=== PATIENT | male | born 1965 | race Caucasian/White ===

== ENCOUNTER 2023-11-01 06:26 | Day surgery (SDC) | payer OTHER, SELFPAY ==
[2023-10-29 08:58] LABS: Hemoglobin 16.8 g/dL (13.0-18.0); Mean Corp Hgb Conc. 34.3 g/dL (33.0-37.0); Mean Corpuscular Hgb 29.8 pg (27.0-31.0); Mean Platelet Volume 10.9 fL (7.4-10.4); Platelet Count 245 10^3/uL (130-400); Red Blood Cell Count 5.63 10^6/uL (4.70-6.10); Red Cell Dist. Width 13.6 % (11.5-14.5); White Blood Cell Count 6.9 10^3/uL (4.8-10.8)
[2023-10-29 09:27] LABS: Blood Urea Nitrogen 19 mg/dl (9-20); Calcium 9.6 mg/dl (8.4-10.2); Carbon Dioxide 28 mmol/L (22-30); Chloride 102 mmol/L (98-107); Glucose 83 mg/dl (70-99); Potassium 5.3 mmol/L (3.5-5.1); Sodium 134 mmol/L (135-145); eGFR > 60.00
[2023-10-29 12:24] VITALS: BMI 28.7
[2023-11-01] VITALS (11 sets, daily range): BP systolic 102–157; BP diastolic 53–80; BMI 28.7
[2023-11-01] MEDS: TYLENOL 1000 MG PO (08:53)
[2023-11-01] MEDS: LOVENOX 40 MG SC (08:53)
[2023-11-01] MEDS: NORMOSOL-R 1000 IV (08:54)
--- NOTE | 2023-11-01 09:09 | W.SUR.PREOP ---
Pre-Operative Surgical Note
-
I have examined this patient prior to the performance of the scheduled procedure.
The patient's condition is unchanged from the time of the current History and
Physical and the patient is able to undergo the scheduled procedure.
--- NOTE | 2023-11-01 11:30 | W.IMMPOSTOP ---
Addendum entered and electronically signed by Jose Dominguez MD 11/01/23 11:43:
#[id number]
Original Note:
Surgical Immed Post Op Note
-
Primary Surgeon: Angelica
Assisting Surgeon: Sean SANCHEZ
Pre-op Diagnosis: Left inguinal hernia
Post-op Diagnosis: Left inguinal hernia, indirect
Procedure Performed: Robotic assisted laparoscopic repair left inguinal hernia with mesh; 3D max extra-large mid weight
Anesthesia Type: GETA +0.25% Marcaine
Specimen / Cultures: None
Estimated Blood Loss: 6 mL
Complications: None immediate
Operative Findings: Sizable left indirect inguinal hernia with cord lipoma which was reduced and excised as well. 3D max extra-large mid weight mesh. Previous right inguinal herniorrhaphy noted. Some laxity noted medially around the direct space
but no peritoneal protrusion.
== END 2023-11-01 13:56 | disposition home or self-care (01) ==
LOC: SDS 06:26
PROVIDERS: ATTENDING PHYSICIAN Surgery; FAMILY PHYSICIAN Family Medicine
DX: K40.90 Unilateral inguinal hernia, without obstruction or gangrene, not specified as recurrent (principal)
CPT/HCPCS: 49650; 36415; 80048; 85027; 93005; C1781

== ENCOUNTER → 2023-11-08 07:43 | Outpatient (REF) | payer OTHER, SELFPAY | LOC: RAD 07:43 | PROVIDERS: ATTENDING PHYSICIAN Surgery; FAMILY PHYSICIAN Family Medicine | DX: M79.89 Other specified soft tissue disorders (principal) | CPT/HCPCS: 93971 ==

== ENCOUNTER 2025-02-11 08:06 | Emergency (ER) | payer SELFPAY ==
[2025-02-11 08:13] VITALS: BP 155/88
[2025-02-11 08:42] VITALS: BMI 27.0
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
[2025-02-11] MEDS: TYLENOL 650 MG PO (09:00)
== END 2025-02-11 10:25 | disposition home or self-care (01) ==
LOC: EMR 08:06
PROVIDERS: EMERGENCY PHYSICIAN Emergency Medicine; FAMILY PHYSICIAN Family Medicine
DX: S49.92XA Unspecified injury of left shoulder and upper arm, initial encounter (principal); V43.52XA Car driver injured in collision with other type car in traffic accident, initial encounter; Z79.01 Long term (current) use of anticoagulants; I10 Essential (primary) hypertension; E78.5 Hyperlipidemia, unspecified; D68.51 Activated protein C resistance
CPT/HCPCS: 99283; 73030